=== PATIENT | female | born 1935 | race Two or more races ===

== ENCOUNTER 2018-12-14 10:15 | Emergency (ER) | payer OTHER ==
[~2018-12-14] VITALS: Ht 162.6 cm; Wt 72.6 kg
[2018-12-14] MEDS ORDERED: Aspirin Baby 81mg ORAL ONE (10:30)
--- NOTE | 2018-12-14 10:33 | Emergency Room Report ---
History of Present Illness General Chief Complaint: Chest Pain Source: Patient Present Illness HPI Patient presents emergency department today complaining of left-sided chest pain. Patient states that she's had this pain for 3 days. Chest pains described as intermittent worse with walking and moving her shoulder. She states that it is tender on palpation of her chest. However she's never had episodes of this before. She denies any prior trauma. Denies any leg pain leg swelling. Denies any nausea vomiting diarrhea chills. Denies any cough runny nose or sore throat. Symptoms noted to be moderate to severe.No other modifying factors. No other associated signs and symptoms. No other complaints were noted. Allergies: Coded Allergies: No Known Allergies (Unverified , 12/14/18) Patient History Past Medical History: DM, HTN Past Surgical History: none Pertinent Family History: none Social History: Denies: smoking, alcohol use, drug use Reviewed Nursing Documentation: PMH: Agreed; PSxH: Agreed Nursing Documentation-PMH Hx Hypertension: Yes Hx Diabetes: Yes Review of Systems All Other Systems: negative except mentioned in HPI Physical Exam Vital Signs Date Time Temp Pulse Resp B/P (MAP) Pulse Ox O2 Delivery O2 Flow Rate FiO2 12/14/18 10:19 98.6 90 18 190/93 96 Room Air Sp02 EP Interpretation: reviewed, normal General Appearance: normal inspection, well appearing, no apparent distress, alert Head: atraumatic Eyes: bilateral eye normal inspection ENT: normal ENT inspection, hearing grossly normal, normal voice Neck: normal inspection, full range of motion, supple, no bony tend Respiratory: normal inspection, lungs clear, normal breath sounds, no respiratory distress, no retraction, no wheezing Cardiovascular #1: regular rate, rhythm, no edema, other - Tender left chest Gastrointestinal: normal inspection, normal bowel sounds, non tender, soft, no guarding, no hernia Genitourinary: no CVA tenderness Musculoskeletal: normal inspection, back normal, normal range of motion Neurologic: normal inspection, alert, responsive, speech normal Psychiatric: normal inspection, judgement/insight normal, mood/affect normal Skin: normal inspection, normal color, no rash Medical Decision Making Diagnostic Impression: Primary Impression: ACS (acute coronary syndrome) Additional Impression: Pancreatitis ER Course Patient presented to the emergency department today complaining of chest pain. Differential diagnoses include acute coronary syndrome, pulmonary embolism, pneumothorax, chest wall pain, pleurisy, pericarditis, acute anxiety reaction just to name a few. Given the severity of the patient's presentation I felt this is a highly complex patient. This patient required extensive workup. CBC , chemistry, EKG, chest x-ray, cardiac enzymes, liver profile were all obtained. 12-lead EKG performed for nontraumatic chest pain. RS documentation: EKG was performed. Please refer to below for interpretation. Patient's laboratory workup show slightly elevated d-dimer. We'll obtain CT scan. Patient also had elevated lipase. This is concerning for pancreatitis. Ultrasound abdomen and pelvis was negative. Case was discussed with physician for patient's insurance group. Patient will be transferred [facility] once a bed is available. Labs Test 12/14/18 10:28 White Blood Count 7.2 K/UL (4.8-10.8) Red Blood Count 5.04 M/UL (4.20-5.40) Hemoglobin 11.4 G/DL (12.0-16.0) Hematocrit 36.7 % (37.0-47.0) Mean Corpuscular Volume 73 FL (80-99) Mean Corpuscular Hemoglobin 22.6 PG (27.0-31.0) Mean Corpuscular Hemoglobin Concent 31.1 G/DL (32.0-36.0) Red Cell Distribution Width 15.0 % (11.6-14.8) Platelet Count 241 K/UL (150-450) Mean Platelet Volume 6.4 FL (6.5-10.1) Neutrophils (%) (Auto) 49.9 % (45.0-75.0) Lymphocytes (%) (Auto) 40.5 % (20.0-45.0) Monocytes (%) (Auto) 9.1 % (1.0-10.0) Eosinophils (%) (Auto) 0.0 % (0.0-3.0) Basophils (%) (Auto) 0.5 % (0.0-2.0) D-Dimer 1.55 mg/L FEU (0.00-0.49) Sodium Level 137 MMOL/L (136-145) Potassium Level 4.0 MMOL/L (3.5-5.1) Chloride Level 100 MMOL/L (98-107) Carbon Dioxide Level 27 MMOL/L (21-32) Anion Gap 10 mmol/L (5-15) Blood Urea Nitrogen 18 mg/dL (7-18) Creatinine 0.9 MG/DL (0.55-1.30) Estimat Glomerular Filtration Rate mL/min (>60) Glucose Level 197 MG/DL (74-106) Calcium Level 9.2 MG/DL (8.5-10.1) Total Bilirubin 0.7 MG/DL (0.2-1.0) Aspartate Amino Transf (AST/SGOT) 19 U/L (15-37) Alanine Aminotransferase (ALT/SGPT) 21 U/L (12-78) Alkaline Phosphatase 95 U/L (46-116) Total Creatine Kinase 43 U/L (26-308) Creatine Kinase MB 0.8 NG/ML (0.0-3.6) Creatine Kinase MB Relative Index 1.8 Troponin I 0.000 ng/mL (0.000-0.056) Total Protein 7.9 G/DL (6.4-8.2) Albumin 3.7 G/DL (3.4-5.0) Globulin 4.2 g/dL Albumin/Globulin Ratio 0.9 (1.0-2.7) Lipase 869 U/L (73-393) EKG Diagnostic Results Rate: normal Rhythm: NSR ST Segments: no acute changes Rhythm Strip Diag. Results EP Interpretation: yes Rate: 99 Rhythm: NSR, no PVC's, no ectopy Chest X-Ray Diagnostic Results Chest X-Ray Diagnostic Results : Chest X-Ray Ordered: Yes # of Views/Limited/Complete: 1 View Indication: Chest Pain EP Interpretation: No Interpretation: no consolidation, no effusion, no pneumothorax Impression: No acute disease Last Vital Signs Date Time Temp Pulse Resp B/P (MAP) Pulse Ox O2 Delivery O2 Flow Rate FiO2 12/14/18 10:19 98.6 90 18 190/93 96 Room Air Status: improved Disposition: XFER SHT-TRM HOSP Condition: Serious Paco Márquez MD Dec 14, 2018 10:33
[2018-12-14 10:39] VITALS: BP 218/90
--- NOTE | 2018-12-14 10:40 | NUR ---
ED Nurse Note: Pt came in from home with son c/o L sided lower chest pain that radiating to back x 3 days. Pain 8/10 lois. Pain worsen with movement. No SOB complaint . Pt has hx of HTN, pt did not take blood pressure medication today. BP 218/90 upon arrival. Other VSS. AOx4. Will cont to monitor.
[2018-12-14] MEDS ORDERED: AMLODIPINE BESY10 MG ORAL (10:44)
[2018-12-14] MEDS ORDERED: LEVOTHYROXINE75 MCG ORAL (10:44)
[2018-12-14] MEDS ORDERED: METOPROLOL TAR100 MG ORAL (10:44)
[2018-12-14] MEDS ORDERED: GLIMEPIRIDE1 MG ORAL (10:44)
[2018-12-14] MEDS ORDERED: LISINOPRIL40 MG ORAL (10:44)
[2018-12-14] MEDS ORDERED: METFORMIN HCL500 M1 ORAL (10:44)
[2018-12-14] MEDS ORDERED: NESINA12.5 MG PO (10:44)
[2018-12-14] MEDS ORDERED: NEXIUM20 M1 ORAL (10:44)
[2018-12-14 10:59] LABS: BASOPHILS % (AUTO) 0.5 % (0.0-2.0); HEMATOCRIT 36.7 % (37.0-47.0); HEMOGLOBIN 11.4 G/DL (12.0-16.0); LYMPHOCYTES % (AUTO) 40.5 % (20.0-45.0); MEAN CORPUSCULAR VOLUME 73 FL (80-99); MONOCYTES % (AUTO) 9.1 % (1.0-10.0); NEUTROPHILS % (AUTO) 49.9 % (45.0-75.0); PLATELET COUNT 241 K/UL (150-450); RED BLOOD COUNT 5.04 M/UL (4.20-5.40); WHITE BLOOD COUNT 7.2 K/UL (4.8-10.8)
[2018-12-14 11:04] LABS: ANION GAP 10 mmol/L (5-15); BLOOD UREA NITROGEN 18 mg/dL (7-18); CALCIUM 9.2 MG/DL (8.5-10.1); CARBON DIOXIDE 27 MMOL/L (21-32); CHLORIDE 100 MMOL/L (98-107); CREATININE 0.9 MG/DL (0.55-1.30); SODIUM 137 MMOL/L (136-145)
--- NOTE | 2018-12-14 11:05 | NUR ---
ED Nurse Note: Blood drawn and sent to lab.
[2018-12-14 11:18] LABS: ALANINE AMINOTRANSFERASE 21 U/L (12-78); ALBUMIN 3.7 G/DL (3.4-5.0); ALBUMIN/GLOBULIN RATIO 0.9 (1.0-2.7); ALKALINE PHOSPHATASE 95 U/L (46-116); ASPARTATE AMINO TRANSFERASE 19 U/L (15-37); BILIRUBIN,TOTAL 0.7 MG/DL (0.2-1.0); CKMB 0.8 NG/ML (0.0-3.6); CREATINE KINASE 43 U/L (26-308)
[2018-12-14 11:47] VITALS: BP 183/68
--- NOTE | 2018-12-14 12:16 | NUR ---
ED Nurse Note: US tech at bedside for imaging.
--- NOTE | 2018-12-14 12:24 | Diagnostic Imaging Report ---
Indication: Chest pain Technique: One view of the chest Comparison: none Findings: There are atelectatic changes at the left lung base. Lungs and pleural spaces are clear otherwise. Heart size is normal Impression: No acute process
[2018-12-14] MEDS ORDERED: Isovue-370 150ml vial INJ PRN (12:45)
[2018-12-14] MEDS ORDERED: Ketorolac 30mg Inj IV ONE (12:45)
--- NOTE | 2018-12-14 13:00 | NUR ---
ED Nurse Note: Pt down to CT for imaging.
[2018-12-14] MEDS ORDERED: Lisinopril 10mg tab ORAL ONE (13:30)
[2018-12-14] MEDS ORDERED: Metoprolol Succinate XL 50mg tab ORAL ONE (13:30)
[2018-12-14 13:56] VITALS: BP 160/75
--- NOTE | 2018-12-14 13:59 | Diagnostic Imaging Report ---
Indication: Abdominal pain, elevated lipase, history of diabetes and hypertension Technique: Lynn-scale and duplex images of the upper abdomen were obtained Comparison: none Findings: Gallbladder demonstrates echogenic nonmobile nonshadowing focus apparently attached to the dependent wall, measures 4 mm diameter. No definite stones. No wall thickening nor pericholecystic fluid. Sonographic Carballo's sign is negative. Common bile duct measures 6 mm in diameter. No intrahepatic biliary ductal dilatation. Liver demonstrates normal echogenicity, no focal abnormality. Portal vein and hepatic veins are patent. Pancreas is unremarkable. Spleen is unremarkable. Left kidney measures 9.7 cm in length. Right kidney measures 9.3 cm length. Both kidneys demonstrate normal echogenicity. There is no hydronephrosis. Right kidney demonstrates a small cyst . Non-aneurysmal abdominal aorta . Impression: Negative for gallstones or dilated bile ducts. Probable small gallbladder wall polyp measuring 4 mm diameter Incidental finding right renal cyst
--- NOTE | 2018-12-14 14:12 | Diagnostic Imaging Report ---
ndication: Chest pain Technique: IV administration nonionic contrast. Spiral acquisitions obtained from the lung bases to the lung apices. Multiplanar and 3-D reconstructions were generated. Total dose length product 838.96 mGycm. CTDIvol(s) 21.41,20.42 mGy. Dose reduction achieved using automated exposure control Comparison: none Findings: The pulmonary arteries are well opacified. No intraluminal filling defects or other findings to suggest acute pulmonary embolus demonstrated. No evidence of thoracic aortic aneurysm or dissection. Normal proximal great neck vessel anatomy. Normal caliber pulmonary arteries. No evidence of right ventricular dilatation. Linear atelectatic changes or scarring are present at both lung bases. There is a small calcified granuloma within the right middle lobe. There is questionably a 3 mm noncalcified nodule in the right middle lobe, image 43 series 8. A small cystic space is seen in the inferior posterior right upper lobe. No infiltrates, effusions, masses, or other noncalcified nodules There is a small sliding-type hiatal hernia. The heart size is normal. No pericardial effusion. No mediastinal or hilar mass or adenopathy. The included portion of the thyroid is unremarkable. No axillary or chest wall mass or adenopathy. Included upper abdominal anatomy is remarkable for subcentimeter bilateral renal lesions which are too small to characterize and also obscured by motion artifact. Impression: No evidence of acute pulmonary embolus or other acute thoracic pathology 3 mm right middle lobe noncalcified nodule. If there is no significant smoking history or other risk factors for lung carcinoma, no further follow-up is necessary. If there are significant risk factors, follow-up CT in 6-12 months should be considered if clinically indicated Basilar pulmonary parenchymal scarring and or atelectasis incidentally noted Small sliding-type hiatal hernia Subcentimeter bilateral renal lesions, too small to characterize, most likely benign simple cysts. No further follow-up necessary The CT scanner at [facility] is accredited by the [employer] and the scans are performed using protocols designed to limit radiation exposure to as low as reasonably achievable to attain images of sufficient resolution adequate for diagnostic evaluation.
--- NOTE | 2018-12-14 14:32 | NUR ---
ED Nurse Note: Ambulance personels at bedside for transportation. RN could not get a hold of DONNA Lee at [facility] for report, tried multiple times, left a message.
[2018-12-14 14:33] VITALS: BP 166/66
--- NOTE | 2018-12-14 14:34 | NUR ---
ED Nurse Note: Report given to DONNA Morocho at [facility].
--- NOTE | 2018-12-15 18:23 | Cardiology Report ---
APPROVED REPORT EKG Measurement Heart [id number] MD [id number] Normal sinus rhythm Nonspecific ST abnormality Abnormal ECG
== END 2018-12-14 14:33 | disposition short-term general hospital (02) ==
LOC: EMR 10:40
DX: I24.9 Acute ischemic heart disease, unspecified (principal); K85.90 Acute pancreatitis without necrosis or infection, unspecified; E11.9 Type 2 diabetes mellitus without complications
CPT/HCPCS: 36415; 71045; 71275; 76700; 80053; 82550; 82553; 83690; 84484; 85025; 85379; 93005; 96374; 99284; J1885; Q9967